=== PATIENT | male | born 1990 | race Caucasian/White ===

== ENCOUNTER 2016-11-01 07:04 | Emergency (ER) | payer OTHER ==
[~2016-11-01] VITALS: Ht 182.9 cm; Wt 65.8 kg
[~2016-11-01 07:04] MED LIST: ALBUTEROL2.5 MG/0.5 INH; ALBUTEROL2.5 MG/3 M INH; PREDNISONE 20 M20 MG PO; PREDNISONE50 MG PO; PROAIR RESPICL90 MCG INH; VENTOLIN HFA 1818 GM INH; ZPAK PO
[2016-11-01] MEDS ORDERED: VENTOLIN HFA 1818 GM INH (08:48)
[2016-11-01] MEDS ORDERED: PREDNISONE 20 M20 MG PO (08:48)
[2016-11-01] MEDS ORDERED: ALBUTEROL2.5 MG/31 INH (08:53)
[2016-11-01 08:59] VITALS: BP 120/70
== END 2016-11-01 09:01 | disposition home or self-care (01) ==
LOC: ER 07:04
DX: J45.901 Unspecified asthma with (acute) exacerbation (principal); F17.210 Nicotine dependence, cigarettes, uncomplicated; F10.99 Alcohol use, unspecified with unspecified alcohol-induced disorder